=== PATIENT | female | born 1995 | race Caucasian/White ===

== ENCOUNTER 2023-10-04 08:26 | Emergency (ER) | payer OTHER ==
[2023-10-04 08:32] VITALS: BP 125/76; PULSE 96; RESP 18; TEMP 98.2; BMI 29.7
[2023-10-04] MEDS ORDERED: ACETAMINOPHEN 500 MG TABLET (FP) ONE (09:15)
[2023-10-04] MEDS ORDERED: IBUPROFEN 400 MG TABLET (FP) PO ONE (09:15)
[2023-10-04] MEDS: IBUPROFEN 400 MG TABLET (FP) PO ONE (09:17)
[2023-10-04] MEDS: ACETAMINOPHEN 500 MG TABLET (FP) PO ONE (09:18)
[2023-10-04 09:47] LABS: THROAT:GRP A STREP NOT DETECTED (NOTDETECTED)
== END 2023-10-04 10:41 | disposition home or self-care (01) ==
LOC: JERFT 08:26
DX: R09.81 Nasal congestion (principal); J02.9 Acute pharyngitis, unspecified; R05.9 Cough, unspecified; R51.9 Headache, unspecified; R68.83 Chills (without fever); J06.9 Acute upper respiratory infection, unspecified; B97.89 Other viral agents as the cause of diseases classified elsewhere; Z20.822 Contact with and (suspected) exposure to COVID-19
CPT/HCPCS: 0241U-QW; 87651; 99283-25

== ENCOUNTER 2023-10-29 11:24 | Emergency (ER) | payer OTHER ==
[2023-10-29 11:53] VITALS: RESP 16; TEMP 97.3; BMI 27.9
[2023-10-29 13:32] LABS: PH,URINE 7.5 (5.0-8.0); URINE APPEARANCE CLEAR; URINE BILIRUBIN NEGATIVE (NEGATIVE); URINE COLOR YELLOW; URINE GLUCOSE (UA) NEGATIVE (NEGATIVE); URINE KETONE NEGATIVE (NEGATIVE); URINE LEUK ESTERASE NEGATIVE (NEGATIVE); URINE NITRITE NEGATIVE (NEGATIVE); URINE PROTEIN NEGATIVE (NEGATIVE)
[2023-10-29 13:34] LABS: HCG,QUALITATIVE URINE Negative
[2023-10-29 13:35] LABS: INR 1.17 (0.83-1.09); PROTHROMBIN TIME (PATIENT) 13.5 SEC (9.7-13.0)
[2023-10-29 13:38] LABS: ACTIVATED PTT 29.3 SECONDS (25.2-36.5); BASO % 1.3 % (0-2.0); EOS % 1.1 % (0-4.5); HEMATOCRIT 27.9 % (32.4-45.2); MCHC 28.6 g/dl (32.0-36.0); MEAN CELL VOLUME 60.1 fl (80-96); MEAN PLT VOLUME 9.2 fl (7.5-11.1); MONO % 9.9 % (3.8-10.2); NEUT % 45.7 % (42.8-82.8); PLATELET COUNT 658 10^3/uL (134-434); RBC 4.65 M/mm3 (3.60-5.2); RDW 21.7 % (11.6-15.6); WHITE BLOOD COUNT 5.5 K/mm3 (4.0-10.0)
[2023-10-29 13:39] LABS: MCH 17.2 pg (25.7-33.7)
[2023-10-29 14:01] LABS: ANISOCYTOSIS 3+; MACROCYTOSIS 0; TARGET CELLS 1+
[2023-10-29 14:44] LABS: POTASSIUM 4.5 mmol/L (3.5-5.1)
[2023-10-29 14:48] LABS: ALBUMIN 3.9 g/dl (3.4-5.0)
[2023-10-29 14:50] LABS: BLOOD UREA NITROGEN 5.8 mg/dL (7-18)
[2023-10-29 14:51] LABS: CREATININE 0.5 mg/dL (0.55-1.3)
[2023-10-29 14:52] LABS: BILIRUBIN,TOTAL 1.1 mg/dL (0.2-1); TOT PROT 7.9 g/dl (6.4-8.2)
[2023-10-29 16:53] VITALS: BP 113/66; PULSE 94
== END 2023-10-29 16:52 | disposition home or self-care (01) ==
LOC: JER 11:24
DX: D64.9 Anemia, unspecified (principal); R19.7 Diarrhea, unspecified; R53.83 Other fatigue
CPT/HCPCS: 36415; 80053; 81003; 82607; 82728; 82746; 83540; 83550; 84439; 84443; 84703; 85025; 85045; 85610; 85730; 86850; 86900; 86901; 87086; 93005; 93010; 99284-25